=== PATIENT | male | born 1990 | race Caucasian/White ===

== ENCOUNTER 2017-08-29 15:25 | Emergency (ER) | payer OTHER ==
[~2017-08-29] VITALS: Ht 177.8 cm; Wt 80.0 kg
[2017-08-29 15:28] VITALS: Ht 177.8 cm; Wt 80.0 kg
[2017-08-29] MEDS ORDERED: ONDANSETRON (ODT) 4 MG TAB ODT STA (15:59)
[2017-08-29] MEDS ORDERED: IBUPROFEN 600 MG TAB PO ONE (16:00)
[2017-08-29] MEDS ORDERED: ACETAMINOPHEN 325 MG TAB PO ONE ×2 (16:00→18:00)
[2017-08-29] MEDS ORDERED: IBUP-1542 PO (17:23)
[2017-08-29] MEDS ORDERED: OSLT75C PO (17:23)
[2017-08-29 18:16] VITALS: TEMP 99.5
--- NOTE | 2017-08-29 18:24 | ERD ---
ER Documentation Chief Complaint Chief Complaint fever , headcahe , nausea ,vomiting HPI Patient is a 27-year-old male presenting to the emergency department with complaints of full body aches, intermittent chills, fever, headache, nausea, and vomiting with sudden onset 20 minutes prior to arrival. Symptoms are moderate in severity. Denies significant neck pain. He denies sick contacts. The patient did not have a flu shot this year. He denies other symptoms currently. ROS All systems reviewed and are negative except as per history of present illness. Medications Home Meds Active Scripts Ibuprofen* (Motrin*) 600 Mg Tab, 600 MG PO Q6, #30 TAB Prov:JOSHUA DE PAZ PA-C 08/29/17 Oseltamivir Phosphate* (Tamiflu*) 75 Mg Capsule, 75 MG PO BID for 5 Days, #10 CAP Prov:JOSHUA DE PAZ PA-C 08/29/17 Allergies Allergies: Coded Allergies: Penicillins (Verified Allergy, Intermediate, 08/29/17) PMhx/Soc Medical and Surgical Hx: pt denies Medical Hx, pt denies Surgical Hx History of Surgery: No Anesthesia Reaction: No Hx Neurological Disorder: No Hx Respiratory Disorders: No Hx Cardiac Disorders: No Hx Psychiatric Problems: No Hx Miscellaneous Medical Probl: No Hx Alcohol Use: No Hx Substance Use: No Hx Tobacco Use: No Smoking Status: Never smoker Physical Exam Vitals Vital Signs Date Time Temp Pulse Resp B/P Pulse Ox O2 Delivery O2 Flow Rate FiO2 08/29/17 18:16 99.5 08/29/17 17:48 101.5 08/29/17 15:28 102.7 122 18 118/79 100 Physical Exam Const: Slightly ill-appearing male, in no acute distress. Head: Atraumatic Eyes: Normal Conjunctiva ENT: Normal External Ears, Nose and Mouth. There is no tonsillar erythema, hypertrophy, or exudate. The airway is clear. Neck: Full range of motion..~ No meningismus. Resp: Clear to auscultation bilaterally Cardio: Regular rate and rhythm, no murmurs Abd: Soft, non tender, non distended. Normal bowel sounds Skin: No petechiae or rashes Ext: No cyanosis, or edema Neur: Awake and alert Psych: Normal Mood and Affect Results 24 hrs Current Medications Medications (Trade) Dose Ordered Sig/Eloina Route PRN Reason Start Time Stop Time Status Last Admin Dose Admin Ibuprofen (Motrin) 600 mg ONCE ONCE PO 08/29/17 16:00 08/29/17 16:01 DC 08/29/17 16:19 Acetaminophen (Tylenol Tab) 650 mg ONCE ONCE PO 08/29/17 16:00 08/29/17 16:01 DC 08/29/17 16:19 Ondansetron HCl (Zofran Odt) 4 mg ONCE STAT ODT 08/29/17 15:59 08/29/17 16:01 DC 08/29/17 16:19 Acetaminophen (Tylenol Tab) 325 mg ONCE ONCE PO 08/29/17 18:00 08/29/17 18:01 DC 08/29/17 17:58 Procedures/MDM 27-year-old male presents to the emergency department with complaints of full body pain, fevers, shaking chills, consistent with flulike symptoms. Initial vital signs show temperature 102.7 and tachycardic at 122. The patient was given p.o. Tylenol and p.o. ibuprofen and temperature reduced to 99.5 prior to discharge. Physical examination was not concerning for meningitis. Influenza a and B and strep rapid swabs were negative. These tests do not rule out influenza, and so I treated empirically with Tamiflu since symptoms were less than 48 hour onset. Low suspicion for sepsis, meningitis, or other life- threatening pathology. Patient stable for discharge with prescriptions. He was much improved after treatment here. No evidence of life-threatening pathology at time of discharge. Pt/family in agreement with discharge plan/diagnosis. Pt/family advised to return immediately with any new or worsening symptoms. Follow-up with primary care physician within the next 1-2 days. Disclaimer: Inadvertent spelling and grammatical errors are likely due to EHR/ dictation software use and do not reflect on the overall quality of patient care. Also, please note that the electronic time recorded on this note does not necessarily reflect the actual time of the patient encounter. Departure Diagnosis: Primary Impression: Flu-like symptoms Condition: Fair Patient Instructions: Influenza (Adult) Additional Instructions: Call your primary care doctor TOMORROW for an appointment during the next 1-2 days.See the doctor sooner or return here if your condition worsens before your appointment time. JOSHAU DE PAZ PA-C Aug 29, 2017 18:24
== END 2017-08-29 18:17 | disposition home or self-care (01) ==
LOC: FTE 15:25
DX: R50.9 Fever, unspecified (principal); R51 Headache; R11.2 Nausea with vomiting, unspecified
CPT/HCPCS: 87400; 87880; Z7502; Z7610; 99283